=== PATIENT | male | born 1985 | race Two or more races ===

== ENCOUNTER 2025-04-26 21:31 | Emergency (ER) | payer MEDICAID ==
[~2025-04-26] VITALS: Ht 172.7 cm; Wt 72.0 kg
[2025-04-26 21:43] VITALS: BP 104/73; PULSE 105; RESP 20; TEMP 36.3; O2SAT 98; O2SAT 99
[2025-04-26] MEDS ORDERED: LIDO170S TP (21:55)
== END 2025-04-26 22:10 | disposition home or self-care (01) ==
LOC: ER 21:44
DX: L55.0 Sunburn of first degree (principal)
CPT/HCPCS: 99282